=== PATIENT | male | born 1940 | race Caucasian/White ===

== ENCOUNTER 2018-03-26 11:38 | Emergency (ER) | payer MEDICARE, OTHER ==
[2018-03-26] MEDS: Lidocaine 2% Jelly 10 ML Urojet MUCMEM ONE (11:57)
--- NOTE | 2018-03-26 12:25 | EDM.PDOC ---
ED HPI GENERAL MEDICAL PROBLEM - General Chief Complaint: Genitourinary Problem Stated Complaint: CANNOT PASS URINE FROM CLINIC Time Seen by Provider: 03/26/18 12:13 Source of Information: Reports: Patient History Limitations: Reports: No Limitations - History of Present Illness INITIAL COMMENTS - FREE TEXT/NARRATIVE: pt arrived uncomfortable and stating that he has not been able to void since 3 am. He was at the clinic and they attempted to put in a cath and was not able to get it in. Onset: Today Duration: Hour(s): Location: Reports: Abdomen, Other ( bladder feels very full. ) Associated Symptoms: Reports: No Other Symptoms Pelvic Pain Score (Numeric/FACES): 9 - Related Data Allergies Allergy/AdvReac Type Severity Reaction Status Date / Time No Known Allergies Allergy Verified 03/26/18 12:05 Home Meds: Home Meds Lisinopril 20 mg PO DAILY 03/26/18 [History] hydroCHLOROthiazide [Hydrochlorothiazide] 25 mg PO DAILY 03/26/18 [History] Past Medical History Cardiovascular History: Reports: Hypertension Gastrointestinal History: Reports: Diverticulosis Genitourinary History: Reports: BPH Musculoskeletal History: Reports: Fracture - Past Surgical History GI Surgical History: Reports: Colon, Colonoscopy ED ROS GENERAL - Review of Systems Review Of Systems: See Below Constitutional: Reports: No Symptoms HEENT: Reports: No Symptoms Respiratory: Reports: No Symptoms Cardiovascular: Reports: No Symptoms Endocrine: Reports: No Symptoms GI/Abdominal: Reports: Constipation : Reports: Urinary Retention, Other ( Pt is very uncomfortable. ) Musculoskeletal: Reports: No Symptoms Skin: Reports: No Symptoms Neurological: Reports: No Symptoms ED EXAM, RENAL/ - Physical Exam Exam: See Below Text/Narrative:: Pt arrived with a history of a enlarged prostate and at this time he is not able to void since in the middle of the nite. He is very uncomfortable. Exam Limited By: No Limitations General Appearance: Alert, Moderate Distress Ears: Normal TMs Nose: Normal Inspection Throat/Mouth: Normal Inspection Head: Atraumatic Neck: Normal Inspection Respiratory/Chest: No Respiratory Distress Cardiovascular: Regular Rate, Rhythm GI/Abdominal: Other ( bladder is distended. ) (Male) Exam: Other (pt has had recent prostate biopsies) Rectal (Males) Exam: Deferred Back Exam: Normal Inspection Extremities: Normal Inspection Neurological: Alert, Oriented, Normal Cognition Psychiatric: Normal Affect Course - Vital Signs Last Recorded V/S: Last Vital Signs Temp 36.6 C 03/26/18 12:05 Pulse 15 L 03/26/18 12:05 Resp 15 03/26/18 12:05 BP 151/82 H 03/26/18 12:05 Pulse Ox 96 03/26/18 12:05 - Orders/Labs/Meds Orders: Active Orders 24 hr Category Date Time Status UA W/MICROSCOPIC [URIN] Urgent Lab 03/26/18 12:09 Ordered Labs: Laboratory Tests 03/26/18 Range/Units 12:09 Urine Color Yellow Urine Appearance Cloudy Urine pH 5.0 (4.5-8.0) Ur Specific [place] 1.020 (1.008-1.030) Urine Protein Negative (NEGATIVE) mg/dL Urine Glucose (UA) Normal (NEGATIVE) mg/dL Urine Ketones Negative (NEGATIVE) mg/dL Urine Occult Blood Large (NEGATIVE) Urine Nitrite Negative (NEGAITVE) Urine Bilirubin Negative (NEGATIVE) Urine Urobilinogen Normal (NORMAL) mg/dL Ur Leukocyte Esterase Negative (NEGATIVE) Urine RBC Semi-packed H (0-5) Urine WBC 0-5 (0-5) Ur Epithelial Cells Rare Amorphous Sediment Not seen Urine Bacteria Not seen Urine Mucus Few Meds: Medications Discontinued Medications Generic Name Dose Route Start Last Admin Trade Name Mindi PRN Reason Stop Dose Admin Lidocaine HCl 10 ml 03/26/18 11:54 03/26/18 11:57 Xylocaine 2% Jelly MUCMEM 03/26/18 11:55 10 ml ONETIME ONE Administration Tamsulosin HCl 0.4 mg 03/26/18 12:28 Flomax PO 03/26/18 12:29 ONETIME ONE - Re-Assessments/Exams Free Text/Narrative Re-Assessment/Exam: 03/26/18 12:35 pt had a serrano inserted with out difficulty. He is much more comfortable. He has no sign of infection in the urine. Departure - Departure Time of Disposition: 12:28 Disposition: Home, Self-Care 01 Condition: Fair Clinical Impression: Urinary retention - Discharge Information Referrals: PCP,None [Primary Care Provider] - Forms: ED Department Discharge Care Plan Goals: encourage fluids, flomax .4 1 tab daily, go to clinic on Saturday for removal of the cath, cont flomax on a on going basis. - My Orders Last 24 Hours: My Active Orders 03/26/18 12:09 UA W/MICROSCOPIC [URIN] Urgent - Assessment/Plan Last 24 Hours: My Active Orders 03/26/18 12:09 UA W/MICROSCOPIC [URIN] Urgent
[2018-03-26] MEDS: Tamsulosin 0.4 MG Cap.ER PO ONE (12:41)
== END 2018-03-26 12:45 | disposition home or self-care (01) ==
LOC: JP.ED 11:38
DX: R33.9 Retention of urine, unspecified (principal); I10 Essential (primary) hypertension; Z79.899 Other long term (current) drug therapy
CPT/HCPCS: 51702; 81001; 99283; A9270